=== PATIENT | male | born 1950 | race Caucasian/White ===

== ENCOUNTER 2020-04-24 08:01 | Day surgery (SDC) | payer MEDICARE ==
[~2020-04-24] VITALS: Ht 182.9 cm; Wt 83.2 kg
[2020-04-24] MEDS ORDERED: SODIUM CHLORIDE 0.9% 1,000 ML IV SCH (08:18)
[2020-04-24 08:22] VITALS: BP 140/87
[2020-04-24] MEDS ORDERED: METO25TA91 PO (08:32)
[2020-04-24 08:53] LABS: BASOPHILS # (AUTO) 0.03 x10^3/uL (0-0.1); BASOPHILS % (AUTO) 1 % (0-1); EOSINOPHILS # (AUTO) 0.17 x10^3/uL (0-0.4); EOSINOPHILS % (AUTO) 4 % (1-7); LYMPHOCYTES # (AUTO) 1.14 x10^3/uL (1-3.4); LYMPHOCYTES % (AUTO) 25 % (22-44); MD NO; MEAN CORPUSCULAR HGB CONC 33.1 g/dL (33.2-36.2); MEAN CORPUSCULAR VOLUME 93.7 fL (81-97); MEAN PLATELET VOLUME 8.4 fL (7.4-10.4); MONOCYTES # (AUTO) 0.48 x10^3/uL (0.2-0.8); MONOCYTES % (AUTO) 10 % (2-9); NEUTROPHILS # (AUTO) 2.84 x10^3/uL (1.8-6.8); NEUTROPHILS % (AUTO) 61 % (42-75); PLATELET COUNT 185 x10^3/uL (130-400); RED BLOOD COUNT 4.81 x10^6/uL (4.38-5.82); RED CELL DISTRIBUTION WIDTH 13.3 % (9.4-14.8)
[2020-04-24 08:59] LABS: ANION GAP 4 mmol/L (5-15); CHLORIDE 111 mmol/L (98-107)
[2020-04-24] MEDS ORDERED: MIDAZOLAM 1 MG/ML, 5ML ONE (10:10)
[2020-04-24] MEDS ORDERED: FENTANYL PF 100 MCG/2ML ONE (10:10)
[2020-04-24] MEDS ORDERED: ISOPROTERENOL 0.2MG/ML, 5ML ONE (10:11)
[2020-04-24] MEDS ORDERED: LIDOCAINE 2%, 20ML ONE (10:11)
[2020-04-24] MEDS ORDERED: ADENOSINE 6 MG/2 ML ONE (10:11)
[2020-04-24] MEDS ORDERED: ACETAMINOPHEN 325 MG TABLET PO PRN (12:30)
== END 2020-04-24 16:19 | disposition home or self-care (01) ==
LOC: CACL 08:01
PROVIDERS: ATTEND Internal Medicine Cardiovascular Disease
DX: I47.1 Supraventricular tachycardia (principal); I44.0 Atrioventricular block, first degree; Z79.899 Other long term (current) drug therapy; Z87.891 Personal history of nicotine dependence; Z88.2 Allergy status to sulfonamides
CPT/HCPCS: 36415; 71046; 80048; 85025; 93613; 93621; 93623; 93653; 99156; 99157; C1730; C1766; C1894; C2630; J2250; J3010; J0153